=== PATIENT | female | born 1950 | race African-American/Black ===

== ENCOUNTER 2019-03-27 14:00 | Inpatient (IN) | payer MEDICARE, MEDICAID ==
[~2019-03-27] VITALS: Ht 182.9 cm; Wt 75.0 kg
[~2019-03-27 14:00] MED LIST: UNK MEDS
[2019-03-27 19:04] LABS: BASOPHILS % 0.8 % (0.0-2.0); HEMATOCRIT. 35.6 % (36.0-48.0); HEMOGLOBIN. 11.1 g/dL (12.0-16.0); LYMPHOCYTES % 16.6 % (20.0-50.0); MEAN CORPUSCULAR HEMOGLOBIN 25.5 pg (28.0-32.0); MEAN CORPUSCULAR VOLUME 81.3 fL (81.0-99.0); MEAN PLATELET VOLUME 8.6 fl (7.4-10.4); NEUTROPHILS % 73.6 % (40.0-76.0); PLATELET 378 x1000/uL (130-400); RED BLOOD CELL COUNT 4.37 mill/uL (4.2-5.4); RED CELL DISTRIBUTION WIDTH 16.5 % (11.6-14.6)
[2019-03-27 19:10] LABS: CHLORIDE 111 mEq/L (98-107)
[2019-03-27 19:11] LABS: INR 1.1; PROTHROMBIN TIME 11.3 sec (9.6-11.0)
[2019-03-27 21:27] LABS: CLARITY URINE TURBID (CLEAR); COLOR URINE DARK YELLOW (YELLOW); KETONES URINE NEGATIVE (NEGATIVE); LEUKOCYTE ESTERASE URINE 3+ (NEGATIVE); NITRITE URINE POSITIVE (NEGATIVE); OCCULT BLOOD URINE 2+ (NEGATIVE); PROTEIN URINE 2+ (NEGATIVE); SPECIFIC GRAVITY URINE 1.014 (1.005-1.030)
[2019-03-27] MEDS ORDERED: MAGNESIUM/ALUMINUM HYDROXIDE/SIMETHICONE 30ML UDC PO PRN (21:45)
[2019-03-27] MEDS ORDERED: DOCUSATE SODIUM 100MG CAPSULE PO PRN (21:45)
[2019-03-27] MEDS ORDERED: IPRATROPIUM/ALBUTEROL 0.5-3(2.5)MG/3ML NEB NEB PRN (21:45)
[2019-03-27] MEDS ORDERED: MORPHINE SULFATE 4 MG/ML CPJ (NOT FOR IM USE) IV ONE (21:45)
[2019-03-27] MEDS ORDERED: CLONIDINE 0.1MG TABLET PO PRN (21:45)
[2019-03-27] MEDS: ONDANSETRON HCL 4MG/2ML INJ IV PRN (23:02)
[2019-03-27 23:50] VITALS: BP 136/80
[2019-03-28] MEDS: SODIUM CHLORIDE 0.9% 1,000 ML IV SCH ×2 (02:15→17:33)
[2019-03-28] MEDS: CEFTRIAXONE 1,000 MG in DEXTROSE 5% WATER 50 ML IV SCH (02:16)
[2019-03-28] MEDS: ACETAMINOPHEN 325MG TABLET PO PRN (04:46)
[2019-03-28] MEDS ORDERED: DEXTROSE 50% WATER 50ML SYRINGE IV PRN (06:00)
[2019-03-28] MEDS: HYDROCODONE/ACETAMINOPHEN 5/325MG TABLET PO PRN (06:29)
[2019-03-28] MEDS ORDERED: BLOOD SUGAR DIAGNOSTIC STRIP TEST SCH (07:10)
[2019-03-28] MEDS ORDERED: INSULIN LISPRO 100 UNITS/ML SUBCUT SCH (07:40)
[2019-03-28 07:51] VITALS: BP 94/54
[2019-03-28] MEDS ORDERED: ENOXAPARIN 40MG/0.4ML SYR SUBCUT SCH (09:00)
[2019-03-28 11:58] LABS: *AMPHETAMINES SCREEN URINE NEGATIVE (NEGATIVE)
[2019-03-28 12:00] VITALS: BP 110/65
[2019-03-28 12:00] LABS: *BARBITURATES SCREEN URINE NEGATIVE (NEGATIVE); *BENZODIAZEPINES SCREEN URINE NEGATIVE (NEGATIVE); *COCAINE SCREEN URINE NEGATIVE (NEGATIVE); METHADONE URINE SCREEN NEGATIVE (NEGATIVE); OPIATES URINE SCREEN PRESUMTIVE POSITIVE (NEGATIVE)
[2019-03-28 12:01] LABS: CANNABINOID URINE SCREEN NEGATIVE (NEGATIVE); PHENCYCLIDINE URINE SCREEN NEGATIVE (NEGATIVE)
[2019-03-28] MEDS: ONDANSETRON HCL 4MG/2ML INJ IV PRN ×2 (12:07→23:11)
[2019-03-28] MEDS: MORPHINE SULFATE 2 MG/ML CPJ (NOT FOR IM USE) IV PRN ×2 (15:50→23:12)
[2019-03-28 16:00] VITALS: BP 106/68
[2019-03-28 20:00] VITALS: BP 116/71
[2019-03-28 20:31] LABS: BASOPHILS % 0.5 % (0.0-2.0); HEMATOCRIT. 32.9 % (36.0-48.0); HEMOGLOBIN. 10.2 g/dL (12.0-16.0); LYMPHOCYTES % 17.3 % (20.0-50.0); MEAN CORPUSCULAR HEMOGLOBIN 25.7 pg (28.0-32.0); MEAN CORPUSCULAR VOLUME 82.6 fL (81.0-99.0); MEAN PLATELET VOLUME 8.9 fl (7.4-10.4); MONOCYTES % 12.7 % (2.0-8.0); NEUTROPHILS % 69.5 % (40.0-76.0); PLATELET 289 x1000/uL (130-400); RED BLOOD CELL COUNT 3.99 mill/uL (4.2-5.4)
[2019-03-28 20:35] LABS: CHLORIDE 113 mEq/L (98-107)
[2019-03-28 20:44] LABS: CREATINE KINASE 21 IU/L (26-192)
[2019-03-28 20:45] LABS: TOTAL IRON BINDING CAPACITY 251 ug/dL (250-450)
[2019-03-28 20:46] LABS: CREATINE KINASE MB FRACTION < 1.0 ng/mL (0.5-3.6)
[2019-03-29] VITALS: BP 133/76
[2019-03-29] MEDS: SODIUM CHLORIDE 0.9% 1,000 ML IV SCH ×2 (03:19→13:41)
[2019-03-29 04:00] VITALS: BP 112/71
[2019-03-29] MEDS: CEFTRIAXONE 1,000 MG in DEXTROSE 5% WATER 50 ML IV SCH (05:10)
[2019-03-29 08:00] VITALS: BP 109/72
[2019-03-29 12:00] VITALS: BP 116/50
[2019-03-29] MEDS: ONDANSETRON HCL 4MG/2ML INJ IV PRN (13:10)
[2019-03-29 16:00] VITALS: BP 160/93
[2019-03-29] MEDS: ACETAMINOPHEN 325MG TABLET PO PRN (17:16)
[2019-03-29] MEDS: METOCLOPRAMIDE HCL 10MG/2ML VIAL IV SCH (18:26)
[2019-03-29] MEDS: MORPHINE SULFATE 2 MG/ML CPJ (NOT FOR IM USE) IV PRN (18:30)
[2019-03-29] MEDS ORDERED: LEVOFLOXACIN 750MG PREMIX 150 ML IV SCH (19:00)
[2019-03-29 19:13] LABS: BASOPHILS % 0.9 % (0.0-2.0); HEMATOCRIT. 33.3 % (36.0-48.0); HEMOGLOBIN. 10.4 g/dL (12.0-16.0); LYMPHOCYTES % 18.9 % (20.0-50.0); MEAN CORPUSCULAR HEMOGLOBIN 25.5 pg (28.0-32.0); MEAN CORPUSCULAR VOLUME 81.3 fL (81.0-99.0); MEAN PLATELET VOLUME 9.3 fl (7.4-10.4); MONOCYTES % 11.6 % (2.0-8.0); NEUTROPHILS % 68.6 % (40.0-76.0); PLATELET 300 x1000/uL (130-400); RED CELL DISTRIBUTION WIDTH 16.2 % (11.6-14.6)
[2019-03-29 20:00] VITALS: BP 105/57
[2019-03-29] MEDS ORDERED: DEXTROSE 50% WATER 50ML SYRINGE IV PRN (21:45)
[2019-03-29] MEDS ORDERED: ZOLPIDEM TARTRATE 5MG TABLET PO PRN (22:00)
[2019-03-30] VITALS: BP 101/61
[2019-03-30] MEDS: METOCLOPRAMIDE HCL 10MG/2ML VIAL IV SCH ×3 (00:36→12:00)
[2019-03-30] MEDS: MORPHINE SULFATE 2 MG/ML CPJ (NOT FOR IM USE) IV PRN (00:36)
[2019-03-30] MEDS: SODIUM CHLORIDE 0.9% 1,000 ML IV SCH ×2 (03:38→16:21)
[2019-03-30 04:00] VITALS: BP 118/71
[2019-03-30] MEDS: INSULIN LISPRO 100 UNITS/ML SUBCUT SCH ×4 (05:53→21:00)
[2019-03-30] MEDS: BLOOD SUGAR DIAGNOSTIC STRIP TEST SCH ×4 (05:53→21:00)
[2019-03-30 06:15] LABS: BASOPHILS % 0.6 % (0.0-2.0); HEMATOCRIT. 29.9 % (36.0-48.0); HEMOGLOBIN. 9.6 g/dL (12.0-16.0); LYMPHOCYTES % 21.9 % (20.0-50.0); MEAN CORPUSCULAR HEMOGLOBIN 26.1 pg (28.0-32.0); MEAN CORPUSCULAR VOLUME 81.4 fL (81.0-99.0); MEAN PLATELET VOLUME 9.3 fl (7.4-10.4); MONOCYTES % 13.8 % (2.0-8.0); NEUTROPHILS % 63.7 % (40.0-76.0); PLATELET 286 x1000/uL (130-400); RED BLOOD CELL COUNT 3.68 mill/uL (4.2-5.4); RED CELL DISTRIBUTION WIDTH 16.3 % (11.6-14.6)
[2019-03-30 08:00] VITALS: BP 131/84
[2019-03-30 12:00] VITALS: BP 138/88
[2019-03-30 16:00] VITALS: BP 115/75
[2019-03-30] MEDS ORDERED: SULFAMETHOXAZOLE/TRIMETHOPRIM 800/160MG TABLET PO SCH (17:00)
[2019-03-30] MEDS: HYDROCODONE/ACETAMINOPHEN 5/325MG TABLET PO PRN (18:00)
[2019-03-30 20:00] VITALS: BP 137/84
[2019-03-31] VITALS: BP 112/66
[2019-03-31 04:00] VITALS: BP 133/71
[2019-03-31] MEDS: SODIUM CHLORIDE 0.9% 1,000 ML IV SCH (05:41)
[2019-03-31] MEDS: INSULIN LISPRO 100 UNITS/ML SUBCUT SCH ×4 (06:34→21:00)
[2019-03-31] MEDS: BLOOD SUGAR DIAGNOSTIC STRIP TEST SCH ×4 (06:34→21:00)
[2019-03-31] MEDS ORDERED: LEVO750T46 MT (08:27)
[2019-03-31] MEDS ORDERED: NICO-645 TP (08:46)
[2019-03-31] MEDS: NICOTINE 21MG PATCH TD SCH (09:30)
[2019-03-31 10:25] VITALS: BP 145/73
[2019-03-31 16:00] VITALS: BP 115/72
[2019-03-31] MEDS: HYDROCODONE/ACETAMINOPHEN 5/325MG TABLET PO PRN (16:46)
[2019-03-31] MEDS ORDERED: LEVOFLOXACIN 750MG PREMIX 150 ML IV SCH (19:00)
[2019-03-31 20:00] VITALS: BP 157/96
[2019-03-31] MEDS: ACETAMINOPHEN 325MG TABLET PO PRN (23:34)
[2019-04-01] VITALS: BP 142/85
[2019-04-01 00:20] LABS: BASOPHILS % 1.6 % (0.0-2.0); HEMATOCRIT. 31.1 % (36.0-48.0); HEMOGLOBIN. 9.9 g/dL (12.0-16.0); LYMPHOCYTES % 25.5 % (20.0-50.0); MEAN CORPUSCULAR HEMOGLOBIN 25.6 pg (28.0-32.0); MEAN CORPUSCULAR VOLUME 80.9 fL (81.0-99.0); MEAN PLATELET VOLUME 8.8 fl (7.4-10.4); NEUTROPHILS % 60.9 % (40.0-76.0); PLATELET 326 x1000/uL (130-400); RED BLOOD CELL COUNT 3.85 mill/uL (4.2-5.4)
[2019-04-01] MEDS: SODIUM CHLORIDE 0.9% 1,000 ML IV SCH ×2 (02:11→08:21)
[2019-04-01] MEDS: HYDROCODONE/ACETAMINOPHEN 5/325MG TABLET PO PRN (02:24)
[2019-04-01 04:00] VITALS: BP 133/83
[2019-04-01] MEDS: BLOOD SUGAR DIAGNOSTIC STRIP TEST SCH ×3 (06:02→17:12)
[2019-04-01] MEDS: INSULIN LISPRO 100 UNITS/ML SUBCUT SCH ×3 (06:02→17:12)
[2019-04-01 08:00] VITALS: BP 153/93
[2019-04-01] MEDS: ONDANSETRON HCL 4MG/2ML INJ IV PRN (11:13)
[2019-04-01] MEDS: NICOTINE 21MG PATCH TD SCH (11:14)
[2019-04-01] MEDS: ACETAMINOPHEN 325MG TABLET PO PRN (11:14)
[2019-04-01 12:00] VITALS: BP 153/98
[2019-04-01 16:00] VITALS: BP 149/88
[2019-04-01 16:09] VITALS: BP 148/90
== END 2019-04-01 17:03 | DRG 871 ==
LOC: ER 14:00 → 8WST 20:56 → ENRESERV 22:21 → 8WST 23:46
PROVIDERS: ADMIT Internal Medicine; ATTEND Internal Medicine
DX: A41.9 Sepsis, unspecified organism (principal); E43 Unspecified severe protein-calorie malnutrition; N39.0 Urinary tract infection, site not specified; N17.9 Acute kidney failure, unspecified; M48.56XA Collapsed vertebra, not elsewhere classified, lumbar region, initial encounter for fracture; K80.20 Calculus of gallbladder without cholecystitis without obstruction; D64.9 Anemia, unspecified; E87.8 Other disorders of electrolyte and fluid balance, not elsewhere classified; I27.20 Pulmonary hypertension, unspecified; K44.9 Diaphragmatic hernia without obstruction or gangrene; N18.9 Chronic kidney disease, unspecified; I12.9 Hypertensive chronic kidney disease with stage 1 through stage 4 chronic kidney disease, or unspecified chronic kidney disease; F17.210 Nicotine dependence, cigarettes, uncomplicated; Z68.22 Body mass index [BMI] 22.0-22.9, adult; Z79.899 Other long term (current) drug therapy; Z71.6 Tobacco abuse counseling
CPT/HCPCS: 36415; 71045; 74176; 76770; 76856; 78582; 80048; 80061; 80305; 81003; 82270; 82550; 82553; 82962; 83036; 83540; 83550; 83605; 83735; 83880; 84443; 84484; 85044; 85379; 87077; 87186; 93005; 93306; 93970; 96374; 97162; 97165; 99285; A9558; J0696; J1650; J1956; J2270; J2405; J2765; J7060